=== PATIENT | female | born 1965 | race Caucasian/White ===

== ENCOUNTER 2020-06-12 17:05 | Inpatient (IN) ==
[2020-06-12] MEDS ORDERED: 0.9 % Sodium Chloride 1,000 ML IVC ONE (17:48)
[2020-06-12] MEDS ORDERED: Ondansetron 4 MG/2 ML VIAL IVP ONE (17:48)
[2020-06-12] MEDS ORDERED: *HR* FentaNYL (PF) 100 MCG/2 ML VIAL IVP ONE (17:51)
[2020-06-12 18:09] LABS: Basophils # 0.1 K/mcL (0.0-0.2); Basophils % 0.4 %; Eosinophils # 0.1 K/mcL (0.0-0.6); Eosinophils % 0.7 %; Hematocrit 40.1 % (35.3-44.9); Immature Granulocytes % 0.4 % (0-4); Lymphocytes # 1.7 K/mcL (0.6-4.6); Lymphocytes % 11.6 %; Mean Corpuscular HGB Conc 32.4 g/dL (31.6-35.5); Mean Corpuscular Hemoglobin 28.4 pg (28.0-33.3); Mean Corpuscular Volume 87.6 fL (83.0-100.0); Monocytes # 0.9 K/mcL (0.0-1.3); Monocytes % 6.2 %; Neutrophils # 12.1 K/mcL (1.6-8.9); Platelet Count 416 K/mcL (140-400); Red Blood Count 4.58 M/mcL (3.82-4.97); Segmented Neutrophils % 80.7 %
[2020-06-12 18:26] LABS: Alanine Aminotransferase 42 Units/L (7-52); Albumin/Globulin Ratio 1.1 (1.1-2.2); Alkaline Phosphatase 174 Units/L (34-104); Aspartate Amino Transferase 54 Units/L (13-39); BUN/Creatinine Ratio 16 (6-26); Bilirubin,Direct 0.2 mg/dL (0.0-0.2); Bilirubin,Indirect 0.9 mg/dL (0.0-1.0); Bilirubin,Total 1.1 mg/dL (0.3-1.0); Blood Urea Nitrogen 10 mg/dL (6-20); Calcium 9.7 mg/dL (8.6-10.3); Carbon Dioxide 26 mEq/L (23-29); Chloride 99 mEq/L (98-107); Globulin 3.7 g/dL (2.4-3.5); Glucose 182 mg/dL (70-105); Lipase 12 Units/L (11-82); Osmolality,Calculated 290 (280-300); Potassium 3.5 mEq/L (3.5-5.1); Sodium 138 mEq/L (136-145); Total Protein 7.7 g/dL (6.4-8.9); eGFR For African Americans > 60 (> 60); eGFR For Non-African Americans > 60 (> 60)
[2020-06-12] MEDS ORDERED: *HR* HYDROmorphone (PF) 1 MG/ML SYRINGE IVP ONE ×2 (20:15→23:55)
[2020-06-12] MEDS ORDERED: Prochlorperazine 10 MG/2 ML VIAL IVP ONE (20:16)
[2020-06-12] MEDS ORDERED: Isovue-370 500 ML BOTTLE IVP ONE (20:47)
[2020-06-12] MEDS ORDERED: Cefepime HCl 2,000 MG in Water for inj. (sterile) 20 ML IVP ONE (20:47)
[2020-06-12 22:39] LABS: Influenza A PCR Negative (Negative); Influenza B PCR Negative (Negative); Resp. Syncytial Virus PCR Negative (Negative)
[2020-06-12 22:40] LABS: SARS-CoV-2 by PCR (In House) Negative (Negative)
[2020-06-12 23:38] LABS: Bilirubin,Urine Negative (Negative); Blood,Urine Negative (Negative); Clarity,Urine Clear (Clear); Color,Urine Colorless (Yellow); Glucose,Urine (UA) >=1000 mg/dL (Normal); Ketones,Urine >150 mg/dL (Negative); Leukocyte Esterase,Urine Negative (Negative); Mucus,Urine Few per lpf (None-Few); Nitrite,Urine Negative (Negative); Protein,Urine 30 mg/dL (Neg-Trace); RBC,Urine 0-3 per hpf (0-3); Specific Gravity,Urine > 1.030 (1.010-1.025); Squamous Epithelial Cell,Urine Few per hpf (None-Few); Urobilinogen,Urine Normal (Normal); WBC,Urine 0-3 per hpf (0-3)
[2020-06-13] MEDS ORDERED: Metoclopramide 10 MG/2 ML VIAL IVP ONE (00:01)
[2020-06-13] MEDS ORDERED: Naloxone 0.4 MG/ML INJ IVP PRN (01:11)
[2020-06-13] MEDS ORDERED: 0.9 % Sodium Chloride 1,000 ML IVC SCH (01:15)
[2020-06-13] MEDS ORDERED: *HR* Dextrose 50 % in Water (Vial) 50 ML VIAL IVP PRN (01:46)
[2020-06-13] MEDS ORDERED: Dextrose Gel 15 GM/37.5 ML TUBE PO PRN ×2 (01:46)
[2020-06-13] MEDS ORDERED: D5% in Water 1,000 ML IVC PRN (01:46)
[2020-06-13] MEDS: Ondansetron 4 MG/2 ML VIAL IVP PRN ×2 (02:55→11:13)
[2020-06-13 04:52] LABS: Hematocrit 35.9 % (35.3-44.9); Mean Corpuscular HGB Conc 31.8 g/dL (31.6-35.5); Mean Corpuscular Hemoglobin 28.7 pg (28.0-33.3); Mean Corpuscular Volume 90.4 fL (83.0-100.0); Platelet Count 366 K/mcL (140-400); Red Blood Count 3.97 M/mcL (3.82-4.97); Red Cell Distribution Width 13.1 % (11.5-14.5); White Blood Count 13.5 K/mcL (4.3-11.1)
[2020-06-13 04:56] LABS: Hemoglobin 11.4 g/dL (11.5-15.4)
[2020-06-13 05:06] LABS: BUN/Creatinine Ratio 19 (6-26); Blood Urea Nitrogen 11 mg/dL (6-20); Calcium 8.8 mg/dL (8.6-10.3); Carbon Dioxide 24 mEq/L (23-29); Chloride 102 mEq/L (98-107); Glucose 284 mg/dL (70-105); Osmolality,Calculated 294 (280-300); Potassium 4.1 mEq/L (3.5-5.1); Sodium 137 mEq/L (136-145); eGFR For African Americans > 60 (> 60); eGFR For Non-African Americans > 60 (> 60)
[2020-06-13] MEDS ORDERED: *HR* Heparin 5,000 UNIT/ML VIAL SQ SCH (06:00)
[2020-06-13] MEDS: Insulin LISPRO 300 UNITS/3 ML VIAL SUBQ SCH ×3 (06:20→17:04)
[2020-06-13] MEDS: *HR* Heparin 5,000 UNIT/ML VIAL SQ SCH ×3 (06:20→22:13)
[2020-06-13] MEDS: Cefepime HCl 2,000 MG in 0.9 % Sodium Chloride Mini Bag 100 ML IVPB SCH ×2 (06:21→16:59)
[2020-06-13] MEDS ORDERED: *HR* HYDROcodone/Acet 5/325 mg TABLET PO PRN (12:38)
[2020-06-13] MEDS: Ketorolac 30 MG/ML VIAL IVP PRN (13:43)
[2020-06-13] MEDS ORDERED: Cefepime HCl 2,000 MG in Water for inj. (sterile) 20 ML IVP ONE (20:47)
[2020-06-14 01:35] LABS: Basophils # 0.1 K/mcL (0.0-0.2); Basophils % 0.5 %; Eosinophils # 0.4 K/mcL (0.0-0.6); Eosinophils % 3.4 %; Hematocrit 33.3 % (35.3-44.9); Hemoglobin 10.3 g/dL (11.5-15.4); Immature Granulocytes % 0.3 % (0-4); Lymphocytes # 3.9 K/mcL (0.6-4.6); Lymphocytes % 38.2 %; Mean Corpuscular HGB Conc 30.9 g/dL (31.6-35.5); Mean Corpuscular Hemoglobin 27.6 pg (28.0-33.3); Mean Corpuscular Volume 89.3 fL (83.0-100.0); Mean Platelet Volume 10.1 fL (9.4-12.4); Monocytes # 0.8 K/mcL (0.0-1.3); Monocytes % 7.5 %; Neutrophils # 5.2 K/mcL (1.6-8.9); Platelet Count 301 K/mcL (140-400); Red Blood Count 3.73 M/mcL (3.82-4.97); Segmented Neutrophils % 50.1 %; White Blood Count 10.3 K/mcL (4.3-11.1)
[2020-06-14 02:03] LABS: BUN/Creatinine Ratio 15 (6-26); Blood Urea Nitrogen 8 mg/dL (6-20); Calcium 8.1 mg/dL (8.6-10.3); Carbon Dioxide 22 mEq/L (23-29); Chloride 105 mEq/L (98-107); Glucose 234 mg/dL (70-105); Osmolality,Calculated 290 (280-300); Potassium 3.5 mEq/L (3.5-5.1); Sodium 137 mEq/L (136-145); eGFR For African Americans > 60 (> 60); eGFR For Non-African Americans > 60 (> 60)
[2020-06-14] MEDS: Cefepime HCl 2,000 MG in 0.9 % Sodium Chloride Mini Bag 100 ML IVPB SCH ×2 (06:30→17:50)
[2020-06-14] MEDS: *HR* Heparin 5,000 UNIT/ML VIAL SQ SCH ×3 (06:31→21:43)
[2020-06-14] MEDS: Insulin LISPRO 300 UNITS/3 ML VIAL SUBQ SCH ×4 (07:30→21:47)
[2020-06-14] MEDS ORDERED: Loratadine 10 MG TABLET PO PRN (16:38)
[2020-06-14] MEDS ORDERED: Fluticasone Propionate Nasal 50 MCG/SPRAY BOTTLE NS PRN (16:38)
[2020-06-14] MEDS ORDERED: GuaiFENesin Liq 200 MG/10 ML UDC PO PRN (16:38)
[2020-06-15] MEDS: Cefepime HCl 2,000 MG in 0.9 % Sodium Chloride Mini Bag 100 ML IVPB SCH ×2 (05:34→17:22)
[2020-06-15] MEDS: *HR* Heparin 5,000 UNIT/ML VIAL SQ SCH ×3 (05:35→21:32)
[2020-06-15] MEDS: PARoxetine 20 MG TABLET PO SCH (07:37)
[2020-06-15] MEDS: Insulin LISPRO 300 UNITS/3 ML VIAL SUBQ SCH ×4 (09:14→21:22)
[2020-06-15] MEDS: polyethylene glycoL 3350 17 GM POWD.PACK PO SCH (09:57)
[2020-06-15] MEDS: Ondansetron 4 MG/2 ML VIAL IVP PRN (11:46)
[2020-06-16 01:17] LABS: Hematocrit 33.2 % (35.3-44.9); Hemoglobin 10.6 g/dL (11.5-15.4); Immature Granulocytes % 0.3 % (0-4); Lymphocytes % 34.5 %; Mean Corpuscular HGB Conc 31.9 g/dL (31.6-35.5); Mean Corpuscular Hemoglobin 28.3 pg (28.0-33.3); Mean Corpuscular Volume 88.8 fL (83.0-100.0); Mean Platelet Volume 10.4 fL (9.4-12.4); Platelet Count 316 K/mcL (140-400); Red Blood Count 3.74 M/mcL (3.82-4.97); Red Cell Distribution Width 12.6 % (11.5-14.5); White Blood Count 9.9 K/mcL (4.3-11.1)
[2020-06-16 01:18] LABS: Basophils # 0.1 K/mcL (0.0-0.2); Basophils % 0.6 %; Eosinophils # 0.3 K/mcL (0.0-0.6); Eosinophils % 3.3 %; Lymphocytes # 3.4 K/mcL (0.6-4.6); Monocytes # 0.8 K/mcL (0.0-1.3); Monocytes % 8.3 %; Neutrophils # 5.2 K/mcL (1.6-8.9)
[2020-06-16 01:37] LABS: Alanine Aminotransferase 18 Units/L (7-52); Albumin 3.2 g/dL (3.5-5.7); Alkaline Phosphatase 112 Units/L (34-104); Aspartate Amino Transferase 16 Units/L (13-39); BUN/Creatinine Ratio 16 (6-26); Bilirubin,Total 0.3 mg/dL (0.3-1.0); Blood Urea Nitrogen 10 mg/dL (6-20); Calcium 8.4 mg/dL (8.6-10.3); Carbon Dioxide 26 mEq/L (23-29); Chloride 104 mEq/L (98-107); Globulin 3.1 g/dL (2.4-3.5); Glucose 258 mg/dL (70-105); Osmolality,Calculated 292 (280-300); Potassium 3.4 mEq/L (3.5-5.1); Sodium 137 mEq/L (136-145); Total Protein 6.3 g/dL (6.4-8.9); eGFR For African Americans > 60 (> 60); eGFR For Non-African Americans > 60 (> 60)
[2020-06-16] MEDS: Insulin LISPRO 300 UNITS/3 ML VIAL SUBQ SCH ×4 (05:43→20:33)
[2020-06-16] MEDS: Ondansetron 4 MG/2 ML VIAL IVP PRN (05:59)
[2020-06-16] MEDS: *HR* Heparin 5,000 UNIT/ML VIAL SQ SCH ×3 (07:24→21:34)
[2020-06-16] MEDS: PARoxetine 20 MG TABLET PO SCH (07:24)
[2020-06-16] MEDS: Cefepime HCl 2,000 MG in 0.9 % Sodium Chloride Mini Bag 100 ML IVPB SCH ×2 (07:24→17:15)
[2020-06-16] MEDS: polyethylene glycoL 3350 17 GM POWD.PACK PO SCH (07:25)
[2020-06-16] MEDS: Ketorolac 30 MG/ML VIAL IVP PRN (10:57)
[2020-06-16 12:11] LABS: INR 1.1
[2020-06-17 04:57] LABS: Basophils # 0.1 K/mcL (0.0-0.2); Basophils % 0.7 %; Eosinophils # 0.3 K/mcL (0.0-0.6); Eosinophils % 3.5 %; Hemoglobin 11.2 g/dL (11.5-15.4); Immature Granulocytes % 0.3 % (0-4); Lymphocytes # 3.3 K/mcL (0.6-4.6); Lymphocytes % 34.4 %; Mean Corpuscular Volume 87.5 fL (83.0-100.0); Monocytes # 0.8 K/mcL (0.0-1.3); Monocytes % 7.9 %; Neutrophils # 5.1 K/mcL (1.6-8.9); Platelet Count 352 K/mcL (140-400); Red Cell Distribution Width 12.5 % (11.5-14.5); Segmented Neutrophils % 53.2 %; White Blood Count 9.5 K/mcL (4.3-11.1)
[2020-06-17 05:16] LABS: Alanine Aminotransferase 34 Units/L (7-52); Albumin 3.3 g/dL (3.5-5.7); Albumin/Globulin Ratio 1.1 (1.1-2.2); Alkaline Phosphatase 139 Units/L (34-104); Aspartate Amino Transferase 61 Units/L (13-39); BUN/Creatinine Ratio 15 (6-26); Bilirubin,Total 0.5 mg/dL (0.3-1.0); Blood Urea Nitrogen 7 mg/dL (6-20); Calcium 8.6 mg/dL (8.6-10.3); Carbon Dioxide 25 mEq/L (23-29); Chloride 105 mEq/L (98-107); Globulin 3.1 g/dL (2.4-3.5); Glucose 179 mg/dL (70-105); Osmolality,Calculated 288 (280-300); Potassium 3.6 mEq/L (3.5-5.1); Sodium 138 mEq/L (136-145); Total Protein 6.4 g/dL (6.4-8.9); eGFR For African Americans > 60 (> 60); eGFR For Non-African Americans > 60 (> 60)
[2020-06-17] MEDS: Insulin LISPRO 300 UNITS/3 ML VIAL SUBQ SCH ×4 (06:25→23:15)
[2020-06-17] MEDS: *HR* Heparin 5,000 UNIT/ML VIAL SQ SCH ×3 (06:25→20:28)
[2020-06-17] MEDS: Cefepime HCl 2,000 MG in 0.9 % Sodium Chloride Mini Bag 100 ML IVPB SCH ×3 (06:25→23:19)
[2020-06-17] MEDS: polyethylene glycoL 3350 17 GM POWD.PACK PO SCH ×2 (09:05→09:08)
[2020-06-17] MEDS: PARoxetine 20 MG TABLET PO SCH (09:05)
[2020-06-17] MEDS: Ondansetron 4 MG/2 ML VIAL IVP PRN (09:06)
[2020-06-17] MEDS ORDERED: 0.9 % Sodium Chloride 500 ML ONE ×2 (10:10→10:44)
[2020-06-17] MEDS ORDERED: *HR* Midazolam HCl 2 MG/2 ML VIAL IVP ONE (10:38)
[2020-06-17] MEDS ORDERED: *HR* FentaNYL (PF) 100 MCG/2 ML VIAL IVP ONE (10:38)
[2020-06-17] MEDS ORDERED: *HR* FentaNYL (PF) 100 MCG/2 ML VIAL ONE (10:43)
[2020-06-17] MEDS ORDERED: *HR* Midazolam HCl 2 MG/2 ML VIAL ONE (10:44)
[2020-06-17] MEDS: Ketorolac 30 MG/ML VIAL IVP PRN ×2 (14:23→20:53)
[2020-06-18 05:30] LABS: Alanine Aminotransferase 34 Units/L (7-52); Albumin 3.3 g/dL (3.5-5.7); Albumin/Globulin Ratio 1.1 (1.1-2.2); Alkaline Phosphatase 122 Units/L (34-104); Aspartate Amino Transferase 43 Units/L (13-39); BUN/Creatinine Ratio 24 (6-26); Bilirubin,Total 0.4 mg/dL (0.3-1.0); Blood Urea Nitrogen 14 mg/dL (6-20); Carbon Dioxide 26 mEq/L (23-29); Chloride 104 mEq/L (98-107); Globulin 3.1 g/dL (2.4-3.5); Glucose 174 mg/dL (70-105); Osmolality,Calculated 289 (280-300); Potassium 3.6 mEq/L (3.5-5.1); Sodium 137 mEq/L (136-145); Total Protein 6.4 g/dL (6.4-8.9); eGFR For African Americans > 60 (> 60); eGFR For Non-African Americans > 60 (> 60)
[2020-06-18] MEDS: Insulin LISPRO 300 UNITS/3 ML VIAL SUBQ SCH ×3 (05:57→17:18)
[2020-06-18] MEDS: *HR* Heparin 5,000 UNIT/ML VIAL SQ SCH ×3 (06:00→20:33)
[2020-06-18] MEDS: polyethylene glycoL 3350 17 GM POWD.PACK PO SCH (09:44)
[2020-06-18] MEDS: Cefepime HCl 2,000 MG in 0.9 % Sodium Chloride Mini Bag 100 ML IVPB SCH ×2 (10:05→17:18)
[2020-06-18] MEDS: PARoxetine 20 MG TABLET PO SCH (10:05)
[2020-06-18] MEDS ORDERED: Scopolamine Patch 1.5 MG PATCH.TD72 ONE (15:00)
[2020-06-18] MEDS ORDERED: Haloperidol Lactate 5 MG/ML VIAL ONE (15:05)
[2020-06-18] MEDS ORDERED: *HR* Propofol 200 MG/20 ML VIAL IVP ONE (15:08)
[2020-06-18] MEDS ORDERED: *HR* Succinylcholine 200 MG/10 ML VIAL IVP ONE (15:13)
[2020-06-18] MEDS ORDERED: Dexamethasone 4 MG/ML VIAL ONE (15:17)
[2020-06-18] MEDS ORDERED: Ondansetron 4 MG/2 ML VIAL ONE (15:17)
[2020-06-18] MEDS ORDERED: *HR* Rocuronium Bromide 50 MG/5 ML VIAL ONE (15:30)
[2020-06-18] MEDS ORDERED: Indomethacin 50 MG SUPP.RECT RC ONE (15:40)
[2020-06-18] MEDS ORDERED: Promethazine 6.25 MG in Water for inj. (sterile) 20 ML IVPB PRN (16:01)
[2020-06-18] MEDS ORDERED: *HR* Promethazine 25 MG/ML VIAL ONE (16:02)
[2020-06-18] MEDS: Ondansetron 4 MG/2 ML VIAL IVP PRN (18:22)
[2020-06-18 18:48] LABS: Albumin 3.8 g/dL (3.5-5.7); Albumin/Globulin Ratio 1.1 (1.1-2.2); Bilirubin,Direct 0.1 mg/dL (0.0-0.2); Bilirubin,Indirect 0.5 mg/dL (0.0-1.0); Bilirubin,Total 0.6 mg/dL (0.3-1.0); Globulin 3.5 g/dL (2.4-3.5); Total Protein 7.3 g/dL (6.4-8.9)
[2020-06-18] MEDS ORDERED: Ketorolac 15 MG/ML VIAL IVP PRN (20:45)
[2020-06-18] MEDS ORDERED: Insulin LISPRO 300 UNITS/3 ML VIAL SUBQ SCH (21:00)
[2020-06-19 05:26] LABS: Basophils % 0.2 %; Hematocrit 35.9 % (35.3-44.9); Hemoglobin 11.8 g/dL (11.5-15.4); Immature Granulocytes % 0.4 % (0-4); Lymphocytes # 1.6 K/mcL (0.6-4.6); Lymphocytes % 13.4 %; Mean Corpuscular HGB Conc 32.9 g/dL (31.6-35.5); Mean Corpuscular Hemoglobin 28.2 pg (28.0-33.3); Mean Corpuscular Volume 85.9 fL (83.0-100.0); Mean Platelet Volume 10.4 fL (9.4-12.4); Monocytes # 0.5 K/mcL (0.0-1.3); Monocytes % 4.3 %; Platelet Count 364 K/mcL (140-400); Red Blood Count 4.18 M/mcL (3.82-4.97); Red Cell Distribution Width 12.7 % (11.5-14.5); Segmented Neutrophils % 81.7 %; White Blood Count 12.2 K/mcL (4.3-11.1)
[2020-06-19 05:48] LABS: Albumin 3.5 g/dL (3.5-5.7); Albumin/Globulin Ratio 1.1 (1.1-2.2); Bilirubin,Direct 0.1 mg/dL (0.0-0.2); Bilirubin,Indirect 0.4 mg/dL (0.0-1.0); Bilirubin,Total 0.5 mg/dL (0.3-1.0); Globulin 3.2 g/dL (2.4-3.5); Total Protein 6.7 g/dL (6.4-8.9)
[2020-06-19] MEDS: *HR* Heparin 5,000 UNIT/ML VIAL SQ SCH (06:15)
[2020-06-19] MEDS: Insulin LISPRO 300 UNITS/3 ML VIAL SUBQ SCH ×2 (08:35→12:12)
[2020-06-19] MEDS: polyethylene glycoL 3350 17 GM POWD.PACK PO SCH (08:35)
[2020-06-19] MEDS: PARoxetine 20 MG TABLET PO SCH (08:37)
[2020-06-19] MEDS: Cefepime HCl 2,000 MG in 0.9 % Sodium Chloride Mini Bag 100 ML IVPB SCH ×2 (08:42)
[2020-06-19 10:52] VITALS: BP 131/73
== END 2020-06-19 14:05 | disposition home or self-care (01) | DRG 252 ==
LOC: EMEROOARM 17:05 → 3ANU 17:05 → SUATTDRO 06-13 01:14 → 3ANU 06-13 02:00 → SUATTDRO 06-16 17:59
PROVIDERS: ADMIT Internal Medicine; ATTEND Internal Medicine

== ENCOUNTER 2020-06-26 17:44 | Observation (INO) ==
[2020-06-26] MEDS ORDERED: 0.9 % Sodium Chloride 1,000 ML IVC ONE ×2 (18:24→22:15)
[2020-06-26 19:08] LABS: Hematocrit 34.4 % (35.3-44.9); Hemoglobin 11.3 g/dL (11.5-15.4); Mean Corpuscular HGB Conc 32.8 g/dL (31.6-35.5); Mean Corpuscular Hemoglobin 28.6 pg (28.0-33.3); Mean Corpuscular Volume 87.1 fL (83.0-100.0); Mean Platelet Volume 10.3 fL (9.4-12.4); Platelet Count 303 K/mcL (140-400); Red Blood Count 3.95 M/mcL (3.82-4.97); Red Cell Distribution Width 13.2 % (11.5-14.5); White Blood Count 14.2 K/mcL (4.3-11.1)
[2020-06-26] MEDS ORDERED: Ondansetron 4 MG/2 ML VIAL IVP ONE ×2 (19:08→20:23)
[2020-06-26] MEDS ORDERED: *HR* HYDROmorphone (PF) 1 MG/ML SYRINGE IVP ONE (19:09)
[2020-06-26 19:31] LABS: Alanine Aminotransferase 19 Units/L (7-52); Albumin 3.4 g/dL (3.5-5.7); Albumin/Globulin Ratio 1.1 (1.1-2.2); Alkaline Phosphatase 106 Units/L (34-104); Aspartate Amino Transferase 24 Units/L (13-39); BUN/Creatinine Ratio 15 (6-26); Bilirubin,Direct 0.2 mg/dL (0.0-0.2); Bilirubin,Indirect 1.2 mg/dL (0.0-1.0); Bilirubin,Total 1.4 mg/dL (0.3-1.0); Blood Urea Nitrogen 8 mg/dL (6-20); Calcium 8.7 mg/dL (8.6-10.3); Carbon Dioxide 24 mEq/L (23-29); Chloride 101 mEq/L (98-107); Globulin 3.2 g/dL (2.4-3.5); Glucose 312 mg/dL (70-105); Osmolality,Calculated 290 (280-300); Potassium 3.9 mEq/L (3.5-5.1); Sodium 135 mEq/L (136-145); Total Protein 6.6 g/dL (6.4-8.9); eGFR For African Americans > 60 (> 60); eGFR For Non-African Americans > 60 (> 60)
[2020-06-26] MEDS ORDERED: Isovue-370 500 ML BOTTLE IVP ONE (19:39)
[2020-06-26 20:00] LABS: Bacteria,Urine Few per hpf (None-Few); Bilirubin,Urine Negative (Negative); Blood,Urine Negative (Negative); Clarity,Urine Clear (Clear); Color,Urine Light-Orange (Yellow); Glucose,Urine (UA) >=1000 mg/dL (Normal); Ketones,Urine 40 mg/dL (Negative); Leukocyte Esterase,Urine Negative (Negative); Mucus,Urine Few per lpf (None-Few); Nitrite,Urine Negative (Negative); Protein,Urine 30 mg/dL (Neg-Trace); Specific Gravity,Urine > 1.030 (1.010-1.025); Squamous Epithelial Cell,Urine Moderate per hpf (None-Few); Urobilinogen,Urine Normal (Normal)
[2020-06-26] MEDS ORDERED: Ondansetron 4 MG/2 ML VIAL ONE (20:25)
[2020-06-26] MEDS ORDERED: *HR* Promethazine 25 MG/ML VIAL IM ONE (20:58)
[2020-06-26] MEDS ORDERED: *HR* HYDROmorphone (PF) 1 MG/ML SYRINGE IVP STA (20:59)
[2020-06-26] MEDS ORDERED: Metoclopramide 10 MG/2 ML VIAL IVP STA (22:08)
[2020-06-26] MEDS ORDERED: Meropenem 1,000 MG in 0.9 % Sodium Chloride Mini Bag 100 ML IVPB ONE (23:00)
[2020-06-26] MEDS ORDERED: Naloxone 0.4 MG/ML INJ IVP PRN (23:41)
[2020-06-26] MEDS ORDERED: Ondansetron 4 MG/2 ML VIAL IVP PRN (23:41)
[2020-06-26] MEDS ORDERED: Milk and Molasses Enema 200 ML RC ONE (23:48)
[2020-06-27 01:10] LABS: Basophils # 0.1 K/mcL (0.0-0.2); Basophils % 0.3 %; Eosinophils % 0.2 %; Hematocrit 35.9 % (35.3-44.9); Hemoglobin 11.3 g/dL (11.5-15.4); Immature Granulocytes % 0.5 % (0-4); Lymphocytes # 1.5 K/mcL (0.6-4.6); Lymphocytes % 8.7 %; Mean Corpuscular HGB Conc 31.5 g/dL (31.6-35.5); Mean Corpuscular Hemoglobin 27.6 pg (28.0-33.3); Mean Corpuscular Volume 87.8 fL (83.0-100.0); Mean Platelet Volume 10.4 fL (9.4-12.4); Monocytes # 0.9 K/mcL (0.0-1.3); Monocytes % 5.2 %; Neutrophils # 14.8 K/mcL (1.6-8.9); Platelet Count 328 K/mcL (140-400); Red Blood Count 4.09 M/mcL (3.82-4.97); Red Cell Distribution Width 13.2 % (11.5-14.5); Segmented Neutrophils % 85.1 %; White Blood Count 17.3 K/mcL (4.3-11.1)
[2020-06-27 01:27] LABS: BUN/Creatinine Ratio 13 (6-26); Blood Urea Nitrogen 6 mg/dL (6-20); Calcium 8.3 mg/dL (8.6-10.3); Carbon Dioxide 21 mEq/L (23-29); Chloride 103 mEq/L (98-107); Glucose 328 mg/dL (70-105); Osmolality,Calculated 292 (280-300); Potassium 4.1 mEq/L (3.5-5.1); Sodium 136 mEq/L (136-145); eGFR For African Americans > 60 (> 60); eGFR For Non-African Americans > 60 (> 60)
[2020-06-27] MEDS: polyethylene glycoL 3350 17 GM POWD.PACK PO SCH (08:28)
[2020-06-27] MEDS: Sennosides/Docusate Sodium TABLET PO SCH ×2 (08:28→21:28)
[2020-06-27] MEDS: MetroNIDAZOLE 500 MG/100 ML 500 MG/100 ML BAG IVPB SCH ×3 (08:29→23:25)
[2020-06-27] MEDS ORDERED: *HR* Dextrose 50 % in Water (Vial) 50 ML VIAL IVP PRN (09:15)
[2020-06-27] MEDS ORDERED: D5% in Water 1,000 ML IVC PRN (09:15)
[2020-06-27] MEDS ORDERED: Dextrose Gel 15 GM/37.5 ML TUBE PO PRN ×2 (09:15)
[2020-06-27] MEDS: Insulin DETEMIR 100 UNIT/ML X5UNITS SUBQ SCH ×2 (09:50→21:28)
[2020-06-27 10:16] LABS: Albumin 3.3 g/dL (3.5-5.7); Albumin/Globulin Ratio 1.1 (1.1-2.2); Bilirubin,Direct 0.2 mg/dL (0.0-0.2); Bilirubin,Indirect 0.7 mg/dL (0.0-1.0); Bilirubin,Total 0.9 mg/dL (0.3-1.0); Total Protein 6.3 g/dL (6.4-8.9)
[2020-06-27] MEDS: *HR* HYDROmorphone (PF) 1 MG/ML SYRINGE IVP PRN ×2 (10:38→23:15)
[2020-06-27] MEDS: Ondansetron 4 MG/2 ML VIAL IVP SCH ×3 (10:38→21:31)
[2020-06-27] MEDS ORDERED: Ipratropium/Albuterol Neb 3 ML IH PRN (11:15)
[2020-06-27] MEDS ORDERED: Loratadine 10 MG TABLET PO PRN (11:17)
[2020-06-27] MEDS: Insulin LISPRO 300 UNITS/3 ML VIAL SUBQ SCH ×2 (12:25→16:13)
[2020-06-27] MEDS: 0.9 % Sodium Chloride 1,000 ML IVC SCH ×2 (13:31→23:15)
[2020-06-27] MEDS: Doxycycline 100 MG in 0.9 % Sodium Chloride Mini Bag 100 ML IVPB SCH (17:23)
[2020-06-28] MEDS: Ondansetron 4 MG/2 ML VIAL IVP SCH (04:12)
[2020-06-28 04:39] LABS: Basophils % 0.3 %; Eosinophils # 0.4 K/mcL (0.0-0.6); Eosinophils % 3.3 %; Hematocrit 31.2 % (35.3-44.9); Hemoglobin 9.8 g/dL (11.5-15.4); Immature Granulocytes % 0.3 % (0-4); Lymphocytes # 2.8 K/mcL (0.6-4.6); Lymphocytes % 23.9 %; Mean Corpuscular HGB Conc 31.4 g/dL (31.6-35.5); Mean Corpuscular Hemoglobin 27.7 pg (28.0-33.3); Mean Corpuscular Volume 88.1 fL (83.0-100.0); Mean Platelet Volume 10.3 fL (9.4-12.4); Monocytes % 8.7 %; Neutrophils # 7.4 K/mcL (1.6-8.9); Platelet Count 293 K/mcL (140-400); Red Blood Count 3.54 M/mcL (3.82-4.97); Red Cell Distribution Width 13.2 % (11.5-14.5); Segmented Neutrophils % 63.5 %; White Blood Count 11.7 K/mcL (4.3-11.1)
[2020-06-28 04:58] LABS: BUN/Creatinine Ratio 9 (6-26); Blood Urea Nitrogen 4 mg/dL (6-20); Calcium 8.3 mg/dL (8.6-10.3); Carbon Dioxide 26 mEq/L (23-29); Chloride 107 mEq/L (98-107); Glucose 134 mg/dL (70-105); Osmolality,Calculated 285 (280-300); Potassium 3.3 mEq/L (3.5-5.1); Sodium 138 mEq/L (136-145); eGFR For African Americans > 60 (> 60); eGFR For Non-African Americans > 60 (> 60)
[2020-06-28] MEDS: Doxycycline 100 MG in 0.9 % Sodium Chloride Mini Bag 100 ML IVPB SCH ×2 (05:29→17:27)
[2020-06-28] MEDS: Insulin LISPRO 300 UNITS/3 ML VIAL SUBQ SCH ×3 (07:23→16:16)
[2020-06-28] MEDS: 0.9 % Sodium Chloride 1,000 ML IVC SCH ×2 (08:28→16:16)
[2020-06-28] MEDS: MetroNIDAZOLE 500 MG/100 ML 500 MG/100 ML BAG IVPB SCH ×3 (08:29→23:38)
[2020-06-28] MEDS: Insulin DETEMIR 100 UNIT/ML X5UNITS SUBQ SCH ×2 (08:30→20:54)
[2020-06-28] MEDS: Sennosides/Docusate Sodium TABLET PO SCH ×2 (08:31→20:54)
[2020-06-28] MEDS: polyethylene glycoL 3350 17 GM POWD.PACK PO SCH (08:37)
[2020-06-28] MEDS: PARoxetine 20 MG TABLET PO SCH (08:38)
[2020-06-28 08:52] LABS: Estimated Average Glucose 226 mg/dl; Hemoglobin A1C 9.5 %
[2020-06-28] MEDS: Ondansetron 4 MG/2 ML VIAL IVP PRN (13:14)
[2020-06-29] MEDS: 0.9 % Sodium Chloride 1,000 ML IVC SCH ×3 (00:32→16:48)
[2020-06-29 03:45] LABS: Basophils # 0.1 K/mcL (0.0-0.2); Basophils % 0.5 %; Eosinophils # 0.4 K/mcL (0.0-0.6); Eosinophils % 3.4 %; Hematocrit 30.2 % (35.3-44.9); Hemoglobin 9.5 g/dL (11.5-15.4); Immature Granulocytes % 0.3 % (0-4); Lymphocytes # 2.6 K/mcL (0.6-4.6); Lymphocytes % 21.2 %; Mean Corpuscular HGB Conc 31.5 g/dL (31.6-35.5); Mean Corpuscular Hemoglobin 27.6 pg (28.0-33.3); Mean Corpuscular Volume 87.8 fL (83.0-100.0); Mean Platelet Volume 10.1 fL (9.4-12.4); Monocytes # 0.9 K/mcL (0.0-1.3); Monocytes % 7.6 %; Neutrophils # 8.2 K/mcL (1.6-8.9); Platelet Count 317 K/mcL (140-400); Red Blood Count 3.44 M/mcL (3.82-4.97); Red Cell Distribution Width 13.3 % (11.5-14.5); White Blood Count 12.3 K/mcL (4.3-11.1)
[2020-06-29 04:04] LABS: BUN/Creatinine Ratio 9 (6-26); Blood Urea Nitrogen 4 mg/dL (6-20); Calcium 8.1 mg/dL (8.6-10.3); Carbon Dioxide 24 mEq/L (23-29); Chloride 105 mEq/L (98-107); Glucose 234 mg/dL (70-105); Osmolality,Calculated 286 (280-300); Potassium 3.7 mEq/L (3.5-5.1); Sodium 136 mEq/L (136-145); eGFR For African Americans > 60 (> 60); eGFR For Non-African Americans > 60 (> 60)
[2020-06-29 04:06] LABS: % Iron Saturation 7 % (15-50); Iron 20 mcg/dL (50-170); Transferrin 203 mg/dL (203-362)
[2020-06-29 04:24] LABS: Ferritin 85 ng/mL (10-120)
[2020-06-29 04:30] LABS: Folate 12.1 ng/mL (3.0-16.0)
[2020-06-29] MEDS: Doxycycline 100 MG in 0.9 % Sodium Chloride Mini Bag 100 ML IVPB SCH ×2 (05:21→16:46)
[2020-06-29] MEDS: Insulin LISPRO 300 UNITS/3 ML VIAL SUBQ SCH ×3 (08:03→16:46)
[2020-06-29] MEDS: MetroNIDAZOLE 500 MG/100 ML 500 MG/100 ML BAG IVPB SCH ×2 (08:05→16:47)
[2020-06-29] MEDS: Ondansetron 4 MG/2 ML VIAL IVP PRN (08:06)
[2020-06-29] MEDS: Sennosides/Docusate Sodium TABLET PO SCH (08:06)
[2020-06-29] MEDS: polyethylene glycoL 3350 17 GM POWD.PACK PO SCH (08:06)
[2020-06-29] MEDS: Insulin DETEMIR 100 UNIT/ML X5UNITS SUBQ SCH ×2 (08:09→20:35)
[2020-06-29] MEDS: PARoxetine 20 MG TABLET PO SCH (08:15)
[2020-06-29] MEDS ORDERED: Pantoprazole 40 MG VIAL IVP ONE (12:13)
[2020-06-30] MEDS: 0.9 % Sodium Chloride 1,000 ML IVC SCH ×2 (00:34→09:25)
[2020-06-30] MEDS: MetroNIDAZOLE 500 MG/100 ML 500 MG/100 ML BAG IVPB SCH ×4 (01:57→23:31)
[2020-06-30] MEDS: Ondansetron 4 MG/2 ML VIAL IVP PRN ×2 (03:21→11:54)
[2020-06-30] MEDS: *HR* HYDROmorphone (PF) 1 MG/ML SYRINGE IVP PRN (04:37)
[2020-06-30] MEDS: Doxycycline 100 MG in 0.9 % Sodium Chloride Mini Bag 100 ML IVPB SCH ×2 (05:21→16:40)
[2020-06-30 08:35] LABS: BUN/Creatinine Ratio 10 (6-26); Blood Urea Nitrogen 5 mg/dL (6-20); Calcium 8.4 mg/dL (8.6-10.3); Carbon Dioxide 24 mEq/L (23-29); Chloride 102 mEq/L (98-107); Glucose 299 mg/dL (70-105); Magnesium 1.4 mg/dL (1.6-2.6); Osmolality,Calculated 290 (280-300); Potassium 3.8 mEq/L (3.5-5.1); Sodium 136 mEq/L (136-145); eGFR For African Americans > 60 (> 60); eGFR For Non-African Americans > 60 (> 60)
[2020-06-30] MEDS: PARoxetine 20 MG TABLET PO SCH (09:24)
[2020-06-30] MEDS: polyethylene glycoL 3350 17 GM POWD.PACK PO SCH (09:26)
[2020-06-30] MEDS: Insulin LISPRO 300 UNITS/3 ML VIAL SUBQ SCH ×3 (09:30→16:47)
[2020-06-30] MEDS: Insulin DETEMIR 100 UNIT/ML X5UNITS SUBQ SCH ×2 (09:30→20:43)
[2020-06-30 12:00] LABS: Basophils # 0.1 K/mcL (0.0-0.2); Basophils % 0.5 %; Eosinophils # 0.3 K/mcL (0.0-0.6); Eosinophils % 2.7 %; Hematocrit 31.2 % (35.3-44.9); Immature Granulocytes % 0.2 % (0-4); Lymphocytes # 2.2 K/mcL (0.6-4.6); Lymphocytes % 18.2 %; Mean Corpuscular HGB Conc 32.1 g/dL (31.6-35.5); Mean Corpuscular Hemoglobin 28.7 pg (28.0-33.3); Mean Corpuscular Volume 89.4 fL (83.0-100.0); Mean Platelet Volume 10.2 fL (9.4-12.4); Monocytes % 8.4 %; Neutrophils # 8.5 K/mcL (1.6-8.9); Platelet Count 319 K/mcL (140-400); Red Blood Count 3.49 M/mcL (3.82-4.97); Red Cell Distribution Width 13.2 % (11.5-14.5); White Blood Count 12.2 K/mcL (4.3-11.1)
[2020-06-30] MEDS: amLODIPine 5 MG TABLET PO SCH (16:51)
[2020-07-01] MEDS: Ondansetron 4 MG/2 ML VIAL IVP PRN (03:32)
[2020-07-01] MEDS: *HR* HYDROmorphone (PF) 1 MG/ML SYRINGE IVP PRN (04:07)
[2020-07-01] MEDS: Doxycycline 100 MG in 0.9 % Sodium Chloride Mini Bag 100 ML IVPB SCH (05:51)
[2020-07-01 07:21] LABS: Basophils # 0.1 K/mcL (0.0-0.2); Basophils % 0.4 %; Eosinophils # 0.3 K/mcL (0.0-0.6); Eosinophils % 2.2 %; Hematocrit 34.1 % (35.3-44.9); Immature Granulocytes % 0.6 % (0-4); Lymphocytes # 1.6 K/mcL (0.6-4.6); Mean Corpuscular HGB Conc 32.3 g/dL (31.6-35.5); Mean Corpuscular Hemoglobin 28.5 pg (28.0-33.3); Mean Corpuscular Volume 88.3 fL (83.0-100.0); Mean Platelet Volume 10.9 fL (9.4-12.4); Monocytes # 1.2 K/mcL (0.0-1.3); Monocytes % 8.1 %; Neutrophils # 11.1 K/mcL (1.6-8.9); Platelet Count 358 K/mcL (140-400); Red Blood Count 3.86 M/mcL (3.82-4.97); Red Cell Distribution Width 13.4 % (11.5-14.5); Segmented Neutrophils % 77.7 %; White Blood Count 14.3 K/mcL (4.3-11.1)
[2020-07-01 07:38] LABS: BUN/Creatinine Ratio 13 (6-26); Blood Urea Nitrogen 6 mg/dL (6-20); Carbon Dioxide 26 mEq/L (23-29); Chloride 99 mEq/L (98-107); Glucose 210 mg/dL (70-105); Magnesium 1.6 mg/dL (1.6-2.6); Osmolality,Calculated 284 (280-300); Potassium 3.7 mEq/L (3.5-5.1); Sodium 135 mEq/L (136-145); eGFR For African Americans > 60 (> 60); eGFR For Non-African Americans > 60 (> 60)
[2020-07-01] MEDS ORDERED: *HR* Promethazine 25 MG/ML VIAL IM ONE (07:39)
[2020-07-01] MEDS: Insulin LISPRO 300 UNITS/3 ML VIAL SUBQ SCH ×3 (09:17→17:16)
[2020-07-01] MEDS: amLODIPine 5 MG TABLET PO SCH (09:18)
[2020-07-01] MEDS: polyethylene glycoL 3350 17 GM POWD.PACK PO SCH (09:19)
[2020-07-01] MEDS: PARoxetine 20 MG TABLET PO SCH (09:19)
[2020-07-01] MEDS: carvediloL 6.25 MG TABLET PO SCH ×2 (09:20→18:30)
[2020-07-01] MEDS: Insulin DETEMIR 100 UNIT/ML X5UNITS SUBQ SCH ×2 (09:28→22:18)
[2020-07-01] MEDS: 0.9 % Sodium Chloride 1,000 ML IVC SCH (11:46)
[2020-07-01] MEDS: Pantoprazole 40 MG VIAL IVP SCH (11:47)
[2020-07-02 01:07] LABS: Basophils # 0.1 K/mcL (0.0-0.2); Basophils % 0.7 %; Eosinophils # 0.4 K/mcL (0.0-0.6); Eosinophils % 3.4 %; Hemoglobin 9.7 g/dL (11.5-15.4); Immature Granulocytes % 0.4 % (0-4); Lymphocytes # 3.3 K/mcL (0.6-4.6); Lymphocytes % 26.9 %; Mean Corpuscular HGB Conc 32.3 g/dL (31.6-35.5); Mean Corpuscular Volume 86.7 fL (83.0-100.0); Monocytes % 8.3 %; Neutrophils # 7.3 K/mcL (1.6-8.9); Platelet Count 348 K/mcL (140-400); Red Blood Count 3.46 M/mcL (3.82-4.97); Red Cell Distribution Width 13.6 % (11.5-14.5); Segmented Neutrophils % 60.3 %; White Blood Count 12.1 K/mcL (4.3-11.1)
[2020-07-02 01:25] LABS: BUN/Creatinine Ratio 12 (6-26); Blood Urea Nitrogen 6 mg/dL (6-20); Calcium 8.6 mg/dL (8.6-10.3); Carbon Dioxide 23 mEq/L (23-29); Chloride 107 mEq/L (98-107); Glucose 172 mg/dL (70-105); Magnesium 1.6 mg/dL (1.6-2.6); Osmolality,Calculated 292 (280-300); Potassium 3.3 mEq/L (3.5-5.1); Sodium 140 mEq/L (136-145); eGFR For African Americans > 60 (> 60); eGFR For Non-African Americans > 60 (> 60)
[2020-07-02] MEDS: 0.9 % Sodium Chloride 1,000 ML IVC SCH (01:26)
[2020-07-02] MEDS: Ondansetron 4 MG/2 ML VIAL IVP PRN (01:29)
[2020-07-02] MEDS: Insulin LISPRO 300 UNITS/3 ML VIAL SUBQ SCH ×2 (09:23→11:36)
[2020-07-02] MEDS: PARoxetine 20 MG TABLET PO SCH (10:07)
[2020-07-02] MEDS: Pantoprazole 40 MG VIAL IVP SCH (10:07)
[2020-07-02] MEDS: amLODIPine 5 MG TABLET PO SCH (10:07)
[2020-07-02] MEDS: carvediloL 6.25 MG TABLET PO SCH (10:07)
[2020-07-02] MEDS: Insulin DETEMIR 100 UNIT/ML X5UNITS SUBQ SCH (10:08)
[2020-07-02] MEDS: polyethylene glycoL 3350 17 GM POWD.PACK PO SCH (10:08)
[2020-07-02 11:24] VITALS: BP 134/80
== END 2020-07-02 15:36 | disposition home or self-care (01) ==
LOC: 3ANU 17:44 → EMEROOARM 17:44 → SUATTDRO 23:52 → 3ANU 06-27 00:24
PROVIDERS: ADMIT Student in an Organized Health Care Education/Training Program; ATTEND Pharmacist

== ENCOUNTER 2021-10-17 08:20 | Inpatient (IN) ==
[2021-10-17] MEDS ORDERED: 0.9 % Sodium Chloride 1,000 ML IVC ONE (08:46)
[2021-10-17 09:17] LABS: White Blood Count 18.1 K/mcL (4.3-11.1)
[2021-10-17 09:18] LABS: Basophils % 0.1 %; Hematocrit 35.7 % (35.3-44.9); Immature Granulocytes % 0.6 % (0-4); Lymphocytes # 1.5 K/mcL (0.6-4.6); Lymphocytes % 8.4 %; Mean Corpuscular HGB Conc 33.6 g/dL (31.6-35.5); Mean Corpuscular Volume 89.3 fL (83.0-100.0); Mean Platelet Volume 10.1 fL (9.4-12.4); Monocytes # 0.9 K/mcL (0.0-1.3); Monocytes % 4.9 %; Neutrophils # 15.6 K/mcL (1.6-8.9); Platelet Count 291 K/mcL (140-400); Red Cell Distribution Width 12.6 % (11.5-14.5)
[2021-10-17 09:33] LABS: VBG HCO3 21 mEq/L (21-27); VBG PCO2 31 mmHg (41-51); VBG PH 7.44 pH Units (7.32-7.42); VBG PO2 256 mmHg (25-50)
[2021-10-17 09:42] LABS: BUN/Creatinine Ratio 28 (6-26); Blood Urea Nitrogen 27 mg/dL (6-20); Calcium 9.1 mg/dL (8.6-10.3); Carbon Dioxide 20 mEq/L (23-29); Chloride 103 mEq/L (98-107); Glucose 421 mg/dL (70-105); Osmolality,Calculated 301 (280-300); Potassium 4.2 mEq/L (3.5-5.1); Sodium 134 mEq/L (136-145); eGFR For African Americans > 60 (> 60); eGFR For Non-African Americans > 60 (> 60)
[2021-10-17 09:44] LABS: Troponin I 1.94 ng/mL (< 0.04)
[2021-10-17 09:47] LABS: Bilirubin,Urine Negative (Negative); Blood,Urine Negative (Negative); Clarity,Urine Clear (Clear); Color,Urine Light-Yellow (Yellow); Glucose,Urine (UA) >=1000 mg/dL (Normal); Ketones,Urine Trace mg/dL (Negative); Leukocyte Esterase,Urine Negative (Negative); Mucus,Urine Few per lpf (None-Few); Nitrite,Urine Negative (Negative); Protein,Urine Negative (Neg-Trace); Specific Gravity,Urine > 1.030 (1.010-1.025); Squamous Epithelial Cell,Urine Few per hpf (None-Few); Urobilinogen,Urine Normal (Normal); WBC,Urine 0-3 per hpf (0-3)
[2021-10-17] MEDS ORDERED: Aspirin Enteric Coated 325 MG Tablet PO ONE (10:42)
[2021-10-17] MEDS ORDERED: Ondansetron ODT 4 MG TAB.RAPDIS SL PRN (10:43)
[2021-10-17] MEDS ORDERED: *HR* Heparin 5,000 UNIT/ML VIAL IVP ONE (10:43)
[2021-10-17] MEDS ORDERED: Melatonin 3 MG TABLET PO PRN (10:43)
[2021-10-17] MEDS ORDERED: Naloxone 0.4 MG/ML INJ IVP PRN (10:43)
[2021-10-17] MEDS ORDERED: *HR* Heparin 5,000 UNIT/ML VIAL IVP PRN ×2 (10:43)
[2021-10-17] MEDS ORDERED: Heparin 25,000UNIT/250ML 1/2NS 25,000 UNIT/250 ML IV.SOLN IVC SCH (10:45)
[2021-10-17] MEDS ORDERED: Heparin 1,000 UNITS/500 mL 500 ML ONE (10:59)
[2021-10-17] MEDS ORDERED: ISOVUE-370 200 ML INFUS..BTL ONE ×2 (10:59→12:41)
[2021-10-17] MEDS ORDERED: Nitroglycerin 1,000 MCG/5 ML VIAL IV ONE (10:59)
[2021-10-17] MEDS ORDERED: 0.9 % Sodium Chloride 1,000 ML ONE (10:59)
[2021-10-17] MEDS ORDERED: *HR* Heparin 10,000 UNIT/10 ML VIAL ONE (10:59)
[2021-10-17 11:03] LABS: Activated Partial Thrombo Time 18.5 Seconds (26.0-36.0); Heparin anti-factor XA UFH < 0.04 IU/mL (0.30-0.70)
[2021-10-17 11:14] LABS: Prothrombin Time 11.2 Seconds (9.4-12.1)
[2021-10-17] MEDS ORDERED: *HR* FentaNYL (PF) 100 MCG/2 ML VIAL ONE (11:41)
[2021-10-17] MEDS ORDERED: *HR* Midazolam HCl 2 MG/2 ML VIAL ONE ×2 (11:41→12:55)
[2021-10-17] MEDS ORDERED: Ondansetron 4 MG/2 ML VIAL ONE (11:56)
[2021-10-17] MEDS ORDERED: Tirofiban 12.5 MG/250ML 12.5 MG/250 ML BAG ONE (12:18)
[2021-10-17] MEDS ORDERED: *HR* Labetalol 100 MG/20 ML MDV ONE (12:56)
[2021-10-17] MEDS ORDERED: Perflutren Lipid Microsphere 1.3 ML in 0.9 % Sodium Chloride 8.7 ML IVP PRN (13:33)
[2021-10-17] MEDS ORDERED: Tirofiban 12.5 MG/250ML 12.5 MG/250 ML BAG IVC SCH (13:45)
[2021-10-17] MEDS ORDERED: *HR* Dextrose 50 % in Water (Syg) 50 ML SYRINGE IVP PRN (13:51)
[2021-10-17] MEDS ORDERED: Dextrose 4 GM Chewable Tablets PO PRN ×2 (13:51)
[2021-10-17] MEDS ORDERED: D5% in Water 1,000 ML IVC PRN (13:51)
[2021-10-17] MEDS ORDERED: Insulin Regular, Human 100 UNIT/ML IV PRN (14:15)
[2021-10-17] MEDS ORDERED: Fluticasone Propionate Nasal 50 MCG/SPRAY BOTTLE NS PRN (15:33)
[2021-10-17] MEDS: Acetaminophen 325 MG TABLET PO PRN (15:56)
[2021-10-17] MEDS ORDERED: Insulin LISPRO 300 UNITS/3 ML VIAL SUBQ SCH (16:00)
[2021-10-17] MEDS ORDERED: Loratadine 10 MG TABLET PO PRN (16:20)
[2021-10-17] MEDS: Insulin LISPRO 300 UNITS/3 ML VIAL SUBQ SCH ×2 (17:10→21:52)
[2021-10-17] MEDS: Insulin DETEMIR 100 UNIT/ML X5UNITS SUBQ SCH (20:27)
[2021-10-18 02:54] LABS: Basophils % 0.1 %; Hemoglobin 10.8 g/dL (11.5-15.4); Immature Granulocytes % 0.4 % (0-4); Lymphocytes # 2.5 K/mcL (0.6-4.6); Lymphocytes % 15.8 %; Mean Corpuscular HGB Conc 32.7 g/dL (31.6-35.5); Mean Corpuscular Hemoglobin 29.5 pg (28.0-33.3); Mean Corpuscular Volume 90.2 fL (83.0-100.0); Monocytes # 0.8 K/mcL (0.0-1.3); Monocytes % 5.2 %; Neutrophils # 12.6 K/mcL (1.6-8.9); Platelet Count 283 K/mcL (140-400); Red Blood Count 3.66 M/mcL (3.82-4.97); Red Cell Distribution Width 12.9 % (11.5-14.5); Segmented Neutrophils % 78.5 %; White Blood Count 16.1 K/mcL (4.3-11.1)
[2021-10-18 03:16] LABS: BUN/Creatinine Ratio 25 (6-26); Blood Urea Nitrogen 17 mg/dL (6-20); Calcium 8.2 mg/dL (8.6-10.3); Carbon Dioxide 20 mEq/L (23-29); Chloride 107 mEq/L (98-107); Chol/HDL Ratio 5.9 (0-4.9); Cholesterol 212 mg/dL (< 200); Glucose 257 mg/dL (70-105); HDL Cholesterol 36 mg/dL (40-59); LDL Cholesterol,Calculated 130 mg/dL (< 100); Osmolality,Calculated 296 (280-300); Potassium 4.5 mEq/L (3.5-5.1); Sodium 138 mEq/L (136-145); Triglycerides 230 mg/dL (< 150); eGFR For African Americans > 60 (> 60); eGFR For Non-African Americans > 60 (> 60)
[2021-10-18] MEDS: Acetaminophen 325 MG TABLET PO PRN (04:51)
[2021-10-18] MEDS: PARoxetine 20 MG TABLET PO SCH (08:55)
[2021-10-18] MEDS: Insulin LISPRO 300 UNITS/3 ML VIAL SUBQ SCH ×4 (08:56→20:46)
[2021-10-18 10:49] LABS: Estimated Average Glucose 200 mg/dl; Hemoglobin A1C 8.6 %
[2021-10-18] MEDS: carvediloL 6.25 MG TABLET PO SCH ×2 (11:32→16:32)
[2021-10-18] MEDS: Aspirin Enteric Coated 81 MG Tablet PO SCH (15:01)
[2021-10-18] MEDS ORDERED: hydrOXYzine pamoate 25 MG CAPSULE PO PRN (16:42)
[2021-10-18] MEDS: Insulin DETEMIR 100 UNIT/ML X5UNITS SUBQ SCH (20:46)
[2021-10-19] MEDS: PARoxetine 20 MG TABLET PO SCH (07:23)
[2021-10-19] MEDS: Aspirin Enteric Coated 81 MG Tablet PO SCH (07:23)
[2021-10-19] MEDS: carvediloL 6.25 MG TABLET PO SCH (07:23)
[2021-10-19] MEDS: Insulin LISPRO 300 UNITS/3 ML VIAL SUBQ SCH ×3 (07:30→20:48)
[2021-10-19] MEDS: Insulin DETEMIR 100 UNIT/ML X5UNITS SUBQ SCH ×2 (10:00→20:48)
[2021-10-19 14:04] LABS: Hematocrit 33.3 % (35.3-44.9); Hemoglobin 11.1 g/dL (11.5-15.4); Mean Corpuscular HGB Conc 33.3 g/dL (31.6-35.5); Mean Corpuscular Hemoglobin 29.9 pg (28.0-33.3); Mean Corpuscular Volume 89.8 fL (83.0-100.0); Platelet Count 252 K/mcL (140-400); Red Blood Count 3.71 M/mcL (3.82-4.97); Red Cell Distribution Width 12.7 % (11.5-14.5); White Blood Count 13.5 K/mcL (4.3-11.1)
[2021-10-19 14:24] LABS: BUN/Creatinine Ratio 21 (6-26); Blood Urea Nitrogen 14 mg/dL (6-20); Calcium 8.3 mg/dL (8.6-10.3); Carbon Dioxide 24 mEq/L (23-29); Chloride 106 mEq/L (98-107); Chol/HDL Ratio 5.5 (0-4.9); Cholesterol 204 mg/dL (< 200); Glucose 150 mg/dL (70-105); HDL Cholesterol 37 mg/dL (40-59); LDL Cholesterol,Calculated 97 mg/dL (< 100); Magnesium 1.9 mg/dL (1.6-2.6); Osmolality,Calculated 287 (280-300); Phosphorous 1.9 mg/dL (2.7-4.5); Potassium 3.4 mEq/L (3.5-5.1); Sodium 137 mEq/L (136-145); Triglycerides 350 mg/dL (< 150); eGFR For African Americans > 60 (> 60); eGFR For Non-African Americans > 60 (> 60)
[2021-10-19 15:02] LABS: Prothrombin Time 11.6 Seconds (9.4-12.1)
[2021-10-19 15:05] LABS: Activated Partial Thrombo Time 24.8 Seconds (26.0-36.0)
[2021-10-19] MEDS: Chlorhexidine Rinse 15 ML MOUTHWASH MM SCH (20:43)
[2021-10-19] MEDS ORDERED: *HR* Enoxaparin 40 MG/0.4 ML SYRINGE SQ ONE (21:00)
[2021-10-20 02:48] LABS: VBG HCO3 23 mEq/L (21-27); VBG Ionized Calcium 1.11 mmol/L (1.15-1.35); VBG PCO2 35 mmHg (41-51); VBG PH 7.43 pH Units (7.32-7.42); VBG PO2 93 mmHg (25-50)
[2021-10-20 02:51] LABS: Hematocrit 33.7 % (35.3-44.9); Mean Corpuscular HGB Conc 32.6 g/dL (31.6-35.5); Mean Corpuscular Hemoglobin 29.7 pg (28.0-33.3); Mean Corpuscular Volume 91.1 fL (83.0-100.0); Mean Platelet Volume 9.8 fL (9.4-12.4); Platelet Count 246 K/mcL (140-400); Red Cell Distribution Width 12.5 % (11.5-14.5); White Blood Count 14.2 K/mcL (4.3-11.1)
[2021-10-20 02:59] LABS: INR 1.1; Prothrombin Time 12.1 Seconds (9.4-12.1)
[2021-10-20 03:02] LABS: Activated Partial Thrombo Time 30.8 Seconds (26.0-36.0)
[2021-10-20 03:06] LABS: BUN/Creatinine Ratio 24 (6-26); Blood Urea Nitrogen 15 mg/dL (6-20); Calcium 8.2 mg/dL (8.6-10.3); Carbon Dioxide 24 mEq/L (23-29); Chloride 107 mEq/L (98-107); Glucose 128 mg/dL (70-105); Magnesium 1.9 mg/dL (1.6-2.6); Osmolality,Calculated 292 (280-300); Phosphorous 2.7 mg/dL (2.7-4.5); Potassium 3.7 mEq/L (3.5-5.1); Sodium 140 mEq/L (136-145); eGFR For African Americans > 60 (> 60); eGFR For Non-African Americans > 60 (> 60)
[2021-10-20] MEDS ORDERED: NiCARdipine 2.5 MG/10 ML Syringe IVPB ONE (05:51)
[2021-10-20] MEDS ORDERED: DOBUTamine 1,000 MG/250 ML BAG ONE (05:51)
[2021-10-20] MEDS ORDERED: *HR* FentaNYL (PF) 250 MCG/5 ML VIAL ONE (05:57)
[2021-10-20] MEDS ORDERED: *HR* Midazolam HCl 5 MG/5 ML VIAL IVP ONE (05:57)
[2021-10-20] MEDS ORDERED: *HR* Rocuronium Bromide 50 MG/5 ML VIAL ONE (05:58)
[2021-10-20] MEDS ORDERED: niCARdipine 20 MG/200 ML MLS IVC ONE (05:58)
[2021-10-20] MEDS ORDERED: *HR* Norepinephrine 4 MG/4 ML VIAL IVC ONE (05:58)
[2021-10-20] MEDS ORDERED: *HR* Etomidate 20 MG/10 ML AMPUL IVP ONE (05:59)
[2021-10-20] MEDS ORDERED: Tranexamic Acid 1,000 MG/10 ML VIAL ONE (05:59)
[2021-10-20] MEDS ORDERED: Clindamycin 900 MG/50 ML 900 MG/50 ML IV.SOLN IVPB ONE ×3 (06:00→07:09)
[2021-10-20] MEDS ORDERED: Aspirin 81 MG TAB.CHEW PO ONE (06:00)
[2021-10-20] MEDS ORDERED: CeFAZolin Syr 2,000MG/20 ML 2,000 MG/20 ML SYRINGE IVPB ONE (06:00)
[2021-10-20] MEDS ORDERED: Protamine Sulfate 250 MG/25 ML VIAL IVP ONE (06:01)
[2021-10-20] MEDS ORDERED: Calcium Gluconate 1,000 MG/10 ML VIAL ONE (06:01)
[2021-10-20] MEDS ORDERED: Papaverine 60 MG/2 ML VIAL IVP ONE (06:03)
[2021-10-20] MEDS: Chlorhexidine Rinse 15 ML MOUTHWASH MM SCH ×2 (06:10→19:29)
[2021-10-20] MEDS ORDERED: Vancomycin 1,250 MG/262.5 ML IV.SOLN IVPB ONE (07:00)
[2021-10-20] MEDS ORDERED: Buckersberg's Blood Cardioplegia PF ONE (07:00)
[2021-10-20] MEDS ORDERED: Norepinephrine 4 MG in 0.9 % Sodium Chloride 250 ML IVC PRN (07:00)
[2021-10-20] MEDS ORDERED: Vancomycin (wt based) 1,000 MG VIAL IV ONE (07:00)
[2021-10-20] MEDS ORDERED: del Nido Cardioplegia Solution PF ONE ×2 (07:00)
[2021-10-20] MEDS ORDERED: Heparin 15,000 UNIT in 0.9 % Sodium Chloride 500 ML IV ONE (07:00)
[2021-10-20 07:27] LABS: ABG Base Excess -3 mEq/L (-2 to 3); ABG Chloride 106 mEq/L (98-107); ABG Glucose 162 mg/dL (60-95); ABG HCO3 24 mEq/L (21-27); ABG Ionized Calcium 1.23 mmol/L (1.15-1.35); ABG Oxygen Saturation 100 % (95-98); ABG PCO2 51 mmHg (35-45); ABG PH 7.29 pH Units (7.32-7.45); ABG PO2 493 mmHg (85-104); ABG TCO2 26 mEq/L (20-26)
[2021-10-20] MEDS ORDERED: Ondansetron 4 MG/2 ML VIAL ONE (07:58)
[2021-10-20 09:30] LABS: ABG Base Excess -4 mEq/L (-2 to 3); ABG Chloride 106 mEq/L (98-107); ABG Glucose 245 mg/dL (60-95); ABG HCO3 21 mEq/L (21-27); ABG Ionized Calcium 1.16 mmol/L (1.15-1.35); ABG Oxygen Saturation 99 % (95-98); ABG PCO2 35 mmHg (35-45); ABG PH 7.38 pH Units (7.32-7.45); ABG PO2 128 mmHg (85-104); ABG TCO2 22 mEq/L (20-26)
[2021-10-20] MEDS ORDERED: Insulin Regular, Human 100 UNIT/ML IV PRN (10:16)
[2021-10-20] MEDS ORDERED: Potassium Chloride 40 MEQ/200 ML BAG IVPB PRN (10:16)
[2021-10-20] MEDS ORDERED: Calcium Gluconate 1gm/50mL 1 GM/50 ML BAG IVPB PRN (10:16)
[2021-10-20] MEDS ORDERED: Albumin Human 5% 12.5 GM/250 ML IV.SOLN IVPB PRN (10:16)
[2021-10-20] MEDS ORDERED: *HR* Dextrose 50 % in Water (Syg) 50 ML SYRINGE IVP PRN (10:16)
[2021-10-20] MEDS ORDERED: *HR* HYDROMORPHONE 2 MG/ML VIAL ONE (10:19)
[2021-10-20] MEDS ORDERED: DOBUTamine 1,000 MG/250 ML BAG IVC SCH (10:30)
[2021-10-20 10:37] LABS: ABG Base Excess -4 mEq/L (-2 to 3); ABG Chloride 105 mEq/L (98-107); ABG Glucose 227 mg/dL (60-95); ABG HCO3 22 mEq/L (21-27); ABG Ionized Calcium 1.71 mmol/L (1.15-1.35); ABG Oxygen Saturation 99 % (95-98); ABG PCO2 42 mmHg (35-45); ABG PH 7.32 pH Units (7.32-7.45); ABG PO2 124 mmHg (85-104); ABG TCO2 23 mEq/L (20-26)
[2021-10-20] MEDS ORDERED: Sugammadex Sodium 200 MG/2 ML VIAL IV ONE (10:51)
[2021-10-20 11:46] LABS: ABG Base Excess -4 mEq/L (-2 to 3); ABG HCO3 24 mEq/L (21-27); ABG Oxygen Saturation 99 % (95-98); ABG PCO2 52 mmHg (35-45); ABG PH 7.27 pH Units (7.32-7.45); ABG PO2 138 mmHg (85-104); ABG TCO2 25 mEq/L (20-26)
[2021-10-20] MEDS: *HR* FentaNYL (PF) 100 MCG/2 ML VIAL IVP PRN ×2 (11:52→19:38)
[2021-10-20 11:53] LABS: Basophils # 0.1 K/mcL (0.0-0.2); Basophils % 0.3 %; Eosinophils # 0.6 K/mcL (0.0-0.6); Eosinophils % 2.3 %; Hematocrit 31.6 % (35.3-44.9); Hemoglobin 10.4 g/dL (11.5-15.4); Immature Granulocytes % 1.1 % (0-4); Lymphocytes # 4.8 K/mcL (0.6-4.6); Lymphocytes % 19.9 %; Mean Corpuscular HGB Conc 32.9 g/dL (31.6-35.5); Mean Corpuscular Hemoglobin 30.4 pg (28.0-33.3); Mean Corpuscular Volume 92.4 fL (83.0-100.0); Mean Platelet Volume 9.8 fL (9.4-12.4); Monocytes % 3.5 %; Platelet Count 264 K/mcL (140-400); Red Blood Count 3.42 M/mcL (3.82-4.97); Red Cell Distribution Width 12.8 % (11.5-14.5); Segmented Neutrophils % 72.9 %
[2021-10-20 11:54] LABS: Monocytes # 0.9 K/mcL (0.0-1.3); Neutrophils # 17.6 K/mcL (1.6-8.9); White Blood Count 24.2 K/mcL (4.3-11.1)
[2021-10-20] MEDS: Pantoprazole 40 MG VIAL IVP SCH (11:56)
[2021-10-20 11:59] LABS: INR 1.2; Prothrombin Time 13.3 Seconds (9.4-12.1)
[2021-10-20 12:01] LABS: Activated Partial Thrombo Time 24.7 Seconds (26.0-36.0)
[2021-10-20 12:07] LABS: BUN/Creatinine Ratio 23 (6-26); Blood Urea Nitrogen 16 mg/dL (6-20); Calcium 8.5 mg/dL (8.6-10.3); Carbon Dioxide 25 mEq/L (23-29); Chloride 107 mEq/L (98-107); Glucose 237 mg/dL (70-105); Magnesium 1.8 mg/dL (1.6-2.6); Osmolality,Calculated 289 (280-300); Potassium 4.2 mEq/L (3.5-5.1); Sodium 135 mEq/L (136-145); eGFR For African Americans > 60 (> 60); eGFR For Non-African Americans > 60 (> 60)
[2021-10-20] MEDS: Ondansetron 4 MG/2 ML VIAL IVP PRN ×2 (13:43→20:16)
[2021-10-20] MEDS: *HR* OxyCODONE/APAP 5/325 TABLET PO PRN (14:12)
[2021-10-20] MEDS: Gabapentin 300 MG CAPSULE PO SCH ×2 (14:12→19:27)
[2021-10-20] MEDS ORDERED: Aspirin Enteric Coated 81 MG Tablet PO ONE (15:00)
[2021-10-20 16:41] LABS: ABG Base Excess -2 mEq/L (-2 to 3); ABG HCO3 24 mEq/L (21-27); ABG Oxygen Saturation 98 % (95-98); ABG PCO2 45 mmHg (35-45); ABG PH 7.33 pH Units (7.32-7.45); ABG PO2 105 mmHg (85-104); ABG TCO2 25 mEq/L (20-26)
[2021-10-20] MEDS: Ketorolac 30 MG/ML VIAL IVP SCH (17:25)
[2021-10-20] MEDS: Clindamycin 900 MG/50 ML 900 MG/50 ML IV.SOLN IVPB SCH (17:25)
[2021-10-20] MEDS: carvediloL 6.25 MG TABLET PO SCH (19:25)
[2021-10-20] MEDS: PARoxetine 20 MG TABLET PO SCH (19:25)
[2021-10-20] MEDS: niCARdipine 20 MG/200 ML MLS IVC SCH ×2 (19:26→23:02)
[2021-10-20] MEDS: Norepinephrine 4 MG/254 ML IV.SOLN IVC SCH (19:27)
[2021-10-21] MEDS: Clindamycin 900 MG/50 ML 900 MG/50 ML IV.SOLN IVPB SCH ×4 (00:07→23:40)
[2021-10-21] MEDS: Ketorolac 30 MG/ML VIAL IVP SCH (00:07)
[2021-10-21] MEDS: niCARdipine 20 MG/200 ML MLS IVC SCH ×2 (03:03→06:35)
[2021-10-21] MEDS: *HR* FentaNYL (PF) 100 MCG/2 ML VIAL IVP PRN ×2 (04:08→08:25)
[2021-10-21 04:31] LABS: Basophils % 0.1 %; Eosinophils % 0.2 %; Hematocrit 31.8 % (35.3-44.9); Hemoglobin 10.5 g/dL (11.5-15.4); Immature Granulocytes % 0.3 % (0-4); Lymphocytes # 1.8 K/mcL (0.6-4.6); Lymphocytes % 12.4 %; Mean Corpuscular Hemoglobin 30.2 pg (28.0-33.3); Mean Corpuscular Volume 91.4 fL (83.0-100.0); Mean Platelet Volume 10.2 fL (9.4-12.4); Monocytes # 0.9 K/mcL (0.0-1.3); Monocytes % 6.5 %; Neutrophils # 11.7 K/mcL (1.6-8.9); Platelet Count 254 K/mcL (140-400); Red Blood Count 3.48 M/mcL (3.82-4.97); Red Cell Distribution Width 12.4 % (11.5-14.5); Segmented Neutrophils % 80.5 %; White Blood Count 14.5 K/mcL (4.3-11.1)
[2021-10-21 04:40] LABS: INR 1.1; Prothrombin Time 12.3 Seconds (9.4-12.1)
[2021-10-21 04:42] LABS: Activated Partial Thrombo Time 25.4 Seconds (26.0-36.0)
[2021-10-21 04:50] LABS: BUN/Creatinine Ratio 22 (6-26); Blood Urea Nitrogen 14 mg/dL (6-20); Carbon Dioxide 22 mEq/L (23-29); Chloride 103 mEq/L (98-107); Glucose 143 mg/dL (70-105); Magnesium 2.1 mg/dL (1.6-2.6); Osmolality,Calculated 279 (280-300); Sodium 133 mEq/L (136-145); eGFR For African Americans > 60 (> 60); eGFR For Non-African Americans > 60 (> 60)
[2021-10-21] MEDS: Ondansetron 4 MG/2 ML VIAL IVP PRN (05:48)
[2021-10-21] MEDS: *HR* OxyCODONE/APAP 5/325 TABLET PO PRN ×2 (05:48→09:28)
[2021-10-21] MEDS ORDERED: *HR* Enoxaparin 40 MG/0.4 ML SYRINGE SQ SCH (06:00)
[2021-10-21] MEDS: Norepinephrine 4 MG/254 ML IV.SOLN IVC SCH (06:35)
[2021-10-21] MEDS ORDERED: Aspirin 81 MG TAB.CHEW PO SCH (09:00)
[2021-10-21] MEDS ORDERED: *HR* Dextrose 50 % in Water (Syg) 50 ML SYRINGE IVP PRN ×2 (09:13→10:39)
[2021-10-21] MEDS ORDERED: Dextrose 4 GM Chewable Tablets PO PRN ×4 (09:13→10:39)
[2021-10-21] MEDS ORDERED: D5% in Water 1,000 ML IVC PRN ×2 (09:13→10:39)
[2021-10-21] MEDS: Pantoprazole 40 MG VIAL IVP SCH (09:27)
[2021-10-21] MEDS: Chlorhexidine Rinse 15 ML MOUTHWASH MM SCH ×2 (09:27→21:42)
[2021-10-21] MEDS: PARoxetine 20 MG TABLET PO SCH (09:28)
[2021-10-21] MEDS: Gabapentin 300 MG CAPSULE PO SCH ×3 (09:28→21:43)
[2021-10-21] MEDS ORDERED: Ondansetron 4 MG/2 ML VIAL IVP PRN (10:39)
[2021-10-21] MEDS ORDERED: Melatonin 3 MG TABLET PO PRN (10:39)
[2021-10-21] MEDS ORDERED: *HR* OxyCODONE/APAP 5/325 TABLET PO PRN (10:39)
[2021-10-21] MEDS ORDERED: hydrOXYzine pamoate 25 MG CAPSULE PO PRN (10:39)
[2021-10-21] MEDS ORDERED: Naloxone 0.4 MG/ML INJ IVP PRN (10:39)
[2021-10-21] MEDS ORDERED: Ondansetron ODT 4 MG TAB.RAPDIS SL PRN (10:39)
[2021-10-21] MEDS ORDERED: Fluticasone Propionate Nasal 50 MCG/SPRAY BOTTLE NS PRN (10:39)
[2021-10-21] MEDS ORDERED: Albumin Human 5% 12.5 GM/250 ML IV.SOLN IVPB PRN (10:39)
[2021-10-21] MEDS ORDERED: Acetaminophen 325 MG TABLET PO PRN (10:39)
[2021-10-21] MEDS ORDERED: Loratadine 10 MG TABLET PO PRN (10:39)
[2021-10-21] MEDS ORDERED: Insulin LISPRO 300 UNITS/3 ML VIAL SUBQ SCH ×2 (11:30→21:00)
[2021-10-21] MEDS: Insulin LISPRO 300 UNITS/3 ML VIAL SUBQ SCH ×3 (12:46→21:44)
[2021-10-21] MEDS: carvediloL 6.25 MG TABLET PO SCH (18:06)
[2021-10-22] MEDS: *HR* Enoxaparin 40 MG/0.4 ML SYRINGE SQ SCH (04:47)
[2021-10-22 05:35] LABS: BUN/Creatinine Ratio 18 (6-26); Blood Urea Nitrogen 16 mg/dL (6-20); Calcium 7.8 mg/dL (8.6-10.3); Carbon Dioxide 24 mEq/L (23-29); Chloride 101 mEq/L (98-107); Glucose 241 mg/dL (70-105); Magnesium 2.2 mg/dL (1.6-2.6); Osmolality,Calculated 283 (280-300); Potassium 3.9 mEq/L (3.5-5.1); Sodium 132 mEq/L (136-145); eGFR For African Americans > 60 (> 60); eGFR For Non-African Americans > 60 (> 60)
[2021-10-22 05:41] LABS: Basophils # 0.1 K/mcL (0.0-0.2); Basophils % 0.4 %; Eosinophils # 0.5 K/mcL (0.0-0.6); Eosinophils % 3.4 %; Hematocrit 30.7 % (35.3-44.9); Hemoglobin 9.8 g/dL (11.5-15.4); Immature Granulocytes % 0.7 % (0-4); Lymphocytes # 2.3 K/mcL (0.6-4.6); Lymphocytes % 17.4 %; Mean Corpuscular HGB Conc 31.9 g/dL (31.6-35.5); Mean Corpuscular Hemoglobin 29.6 pg (28.0-33.3); Mean Corpuscular Volume 92.7 fL (83.0-100.0); Mean Platelet Volume 10.1 fL (9.4-12.4); Monocytes # 1.1 K/mcL (0.0-1.3); Monocytes % 8.5 %; Neutrophils # 9.3 K/mcL (1.6-8.9); Platelet Count 279 K/mcL (140-400); Red Blood Count 3.31 M/mcL (3.82-4.97); Red Cell Distribution Width 12.8 % (11.5-14.5); Segmented Neutrophils % 69.6 %; White Blood Count 13.4 K/mcL (4.3-11.1)
[2021-10-22] MEDS: Pantoprazole 40 MG VIAL IVP SCH (07:52)
[2021-10-22] MEDS: Clindamycin 900 MG/50 ML 900 MG/50 ML IV.SOLN IVPB SCH (07:53)
[2021-10-22] MEDS: carvediloL 6.25 MG TABLET PO SCH ×2 (07:53→16:45)
[2021-10-22] MEDS: Gabapentin 300 MG CAPSULE PO SCH ×3 (07:53→20:00)
[2021-10-22] MEDS: PARoxetine 20 MG TABLET PO SCH (07:53)
[2021-10-22] MEDS: Aspirin 81 MG TAB.CHEW PO SCH (07:53)
[2021-10-22] MEDS: Insulin LISPRO 300 UNITS/3 ML VIAL SUBQ SCH ×4 (07:54→20:00)
[2021-10-22] MEDS: Chlorhexidine Rinse 15 ML MOUTHWASH MM SCH ×2 (07:54→20:00)
[2021-10-22] MEDS: Ketorolac 30 MG/ML VIAL IVP SCH ×2 (09:12→11:28)
[2021-10-22] MEDS: Insulin DETEMIR 100 UNIT/ML X5UNITS SUBQ SCH (20:00)
[2021-10-23 04:18] LABS: Basophils # 0.1 K/mcL (0.0-0.2); Basophils % 0.5 %; Eosinophils # 0.6 K/mcL (0.0-0.6); Eosinophils % 4.3 %; Hematocrit 29.7 % (35.3-44.9); Hemoglobin 9.7 g/dL (11.5-15.4); Immature Granulocytes % 0.6 % (0-4); Lymphocytes # 2.1 K/mcL (0.6-4.6); Lymphocytes % 16.4 %; Mean Corpuscular HGB Conc 32.7 g/dL (31.6-35.5); Mean Corpuscular Hemoglobin 29.5 pg (28.0-33.3); Mean Corpuscular Volume 90.3 fL (83.0-100.0); Mean Platelet Volume 10.1 fL (9.4-12.4); Monocytes # 1.2 K/mcL (0.0-1.3); Monocytes % 9.1 %; Neutrophils # 8.8 K/mcL (1.6-8.9); Platelet Count 266 K/mcL (140-400); Red Blood Count 3.29 M/mcL (3.82-4.97); Red Cell Distribution Width 12.8 % (11.5-14.5); Segmented Neutrophils % 69.1 %; White Blood Count 12.7 K/mcL (4.3-11.1)
[2021-10-23 04:34] LABS: BUN/Creatinine Ratio 24 (6-26); Blood Urea Nitrogen 19 mg/dL (6-20); Calcium 8.1 mg/dL (8.6-10.3); Carbon Dioxide 25 mEq/L (23-29); Chloride 104 mEq/L (98-107); Glucose 232 mg/dL (70-105); Magnesium 2.2 mg/dL (1.6-2.6); Osmolality,Calculated 290 (280-300); Potassium 3.9 mEq/L (3.5-5.1); Sodium 135 mEq/L (136-145); eGFR For African Americans > 60 (> 60); eGFR For Non-African Americans > 60 (> 60)
[2021-10-23] MEDS: *HR* Enoxaparin 40 MG/0.4 ML SYRINGE SQ SCH (06:09)
[2021-10-23] MEDS: PARoxetine 20 MG TABLET PO SCH (08:51)
[2021-10-23] MEDS: Pantoprazole 40 MG VIAL IVP SCH (08:51)
[2021-10-23] MEDS: Aspirin 81 MG TAB.CHEW PO SCH (08:52)
[2021-10-23] MEDS: carvediloL 6.25 MG TABLET PO SCH (08:52)
[2021-10-23] MEDS: Gabapentin 300 MG CAPSULE PO SCH (08:52)
[2021-10-23] MEDS: Insulin LISPRO 300 UNITS/3 ML VIAL SUBQ SCH ×2 (08:52→11:48)
[2021-10-23] MEDS: Chlorhexidine Rinse 15 ML MOUTHWASH MM SCH (08:53)
[2021-10-23] MEDS: Insulin DETEMIR 100 UNIT/ML X5UNITS SUBQ SCH (08:56)
[2021-10-23 11:35] VITALS: PULSE 91
[2021-10-23 11:40] VITALS: TEMP 98.1
[2021-10-23 12:47] VITALS: BP 135/66; O2SAT 95
[2021-10-23 15:41] LABS: Adenovirus Not Detected (Not Detect); Bordetella Pertussis Not Detected (Not Detect); Chlamydophila pneumoniae Not Detected (Not Detect); Coronavirus 229E Not Detected (Not Detect); Coronavirus HKU1 Not Detected (Not Detect); Coronavirus NL63 Not Detected (Not Detect); Coronavirus OC43 Not Detected (Not Detect); Human Metapneumovirus Not Detected (Not Detect); Human Rhinovirus/Enterovirus Not Detected (Not Detect); Influenza A Subtype 2009 H1 Not Detected (Not Detect); Influenza B Not Detected (Not Detect); Mycoplasma pneumoniae Not Detected (Not Detect); Parainfluenza Virus 1 Not Detected (Not Detect); Parainfluenza Virus 2 Not Detected (Not Detect); Parainfluenza Virus 3 Not Detected (Not Detect); Parainfluenza Virus 4 Not Detected (Not Detect); Respiratory Syncytial Virus Not Detected (Not Detect); SARS-CoV-2 Not Detected (Not Detect)
== END 2021-10-23 15:59 | DRG 166 ==
LOC: 3NENU 08:20 → EMEROOARM 08:20 → SUATTDRO 11:38 → 3NENU 11:45 → ICNU 10-20 09:23 → 2NNU 10-21 19:38
PROVIDERS: ADMIT Internal Medicine; ATTEND Family Medicine